=== PATIENT | male | born 1935 | race Caucasian/White ===

== ENCOUNTER → 2016-11-11 | Outpatient (CLI) | payer OTHER, MEDICARE | LOC: BHFA 14:45 | PROVIDERS: ATTEND Internal Medicine | DX: I35.9 Nonrheumatic aortic valve disorder, unspecified (principal) ==

== ENCOUNTER 2017-01-08 18:15 | Inpatient (IN) | payer OTHER, MEDICARE ==
--- NOTE | 2017-01-08 18:16 | EDPHY ---
H & P Time Seen by Provider: 01/08/17 18:16 HPI/ROS: CHIEF COMPLAINT: Altered mental status HISTORY OF PRESENT ILLNESS: Patient arrives by EMS. Apparently this 81-year- old man went for a 6 mi hike and when he got home with his was suddenly altered at 5:20 p.m.. He was answering questions with numbers only and this persisted for 30-40 minutes. On arrival now is mental status is better. He is noted to have a cough for the last 3 days but denies chest pain or shortness of breath. Denies fever or chills. Denies chest pain or weakness or numbness in extremities. REVIEW OF SYSTEMS: Eye: no change in vision ENT: no sore throat Cardiac: no chest pain or syncope Pulmonary: Not short of breath Abdomen: no vomiting, diarrhea, abdominal pain Musculoskeletal: no back pain Skin: no rash Neuro: no headache Constitutional: no fever : no urinary symptoms A comprehensive 10 point review of systems is otherwise negative aside from elements mentioned in the history of present illness. PAST MEDICAL HISTORY: Cardiac bypass surgery in August of 2016, hypertension Social history: , no alcohol or tobacco General Appearance: Alert and conversant, cooperative. Eyes: No scleral icterus. ENT, Mouth: Normal mucous membranes. Respiratory: Rhonchi greater right lower lobe than left, mildly tachypneic. Cardiovascular: Regular rate and rhythm. No murmur Gastrointestinal: Abdomen is soft and non tender. Neurological: Alert and oriented x3. Normally conversant. Face symmetric, normal movement and sensation in all extremities. Follows commands appropriately and answers questions with words not numbers. Skin: Warm and dry, no rashes. Musculoskeletal: No peripheral edema and no joint swelling. Neck full range of motion with no meningeal signs. Psychiatric: Not agitated. Emergency Department course/MDM: Possibility of stroke or TIAs considered but his symptoms have resolved at the time of emergency department arrival. He has had a cough for several days and is hypoxic on arrival, feels warm to the touch, suspicion for pneumonia with sepsis. 1916: Discussed results with patient and family, admission for hypoxemia and pneumonia with probable hypoxia related altered mental status. Does meet SIRS criteria for sepsis but does not have severe sepsis. Antibiotics for community-acquired pneumonia as he has not been hospitalized for greater than 90 days. Levaquin 750 mg IV chosen to avoid macrolides in the patient on amiodarone because of QT prolongation potential. Constitutional: Initial Vital Signs Temperature (C) 37.7 C 01/08/17 18:15 Heart Rate 96 01/08/17 18:15 Respiratory Rate 14 01/08/17 18:15 Blood Pressure 146/76 H 01/08/17 18:15 O2 Sat (%) 94 01/08/17 18:15 O2 Delivery Mode Nasal Cannula O2 (L/minute) 4 Allergies/Adverse Reactions: No Known Allergies Allergy (Verified 09/15/16 08:39) Home Medications: Medication Instructions Recorded Albuterol Hfa Anes Only [Proair 2 puffs IH Q4-6PRN PRN 11/16/12 Hfa Icu (*)] Cholecalciferol Vit D3 [Vitamin D3 4,000 units PO DAILY 11/16/12 (*)] Clopidogrel Bisulfate [Plavix (*)] 75 mg PO SUTUTHSA 11/16/12 Atorvastatin Calcium [Lipitor 40 40 mg PO DAILY 08/29/16 mg (*)] Fluticasone/Salmeter 250/50Mcg 1 puffs IH BID 08/29/16 [Advair 250/50 (*)] Pantoprazole Sodium [Protonix 40mg 40 mg PO DAILY 08/29/16 (*)] Sennosides/Docusate Sodium 1 - 2 tab PO BID PRN #0 tab 09/10/16 [Senokot-S] amLODIPine BESYLATE [Norvasc 5 mg 5 mg PO DAILY #0 tab 09/10/16 (*)] Medical Decision Making - Diagnostics EKG Interpretation: 12-lead EKG interpreted by me; official reading is in trace master. My interpretation is sinus rhythm inferior Q-waves noted, no acute ischemic changes , rate 93. Imaging: Chest x-ray personally interpreted by myself shows right upper lung pneumonia, reviewed with radiologist at 7:05 p.m. agrees Differential Diagnosis: Altered mental status differential considered including but not limited to stroke, TIA, BATH ATTENDANT infection, hypoxemia. Consult/Admit Bed Type: Michelle Shultz 1925 Critical Care Time: Critical care time spent by me, Dr. Benton, exclusively with the care of this patient was 30 minutes, exclusive of PA or EDUCATIONAL TECHNOLOGY SPECIALIST time and exclusive of separate procedures. The organ system at risk was pulmonary with initial oxygen saturations in the mid 80s on room air, and I ordered supplemental oxygen, IV fluid resuscitation, IV antibiotics, multiple diagnostic studies, discussion with admitting coutierier; to stabilize the patient and prevent worsening of the patient's condition. - Data Points Laboratory Results: Laboratory Results 01/08/17 18:27 01/08/17 18:27 01/08/17 01/08/17 01/08/17 18:28 18:27 18:27 WBC RBC Hgb Hct MCV MCH MCHC RDW Plt Count MPV Neut % (Auto) Lymph % (Auto) [place] % (Auto) Eos % (Auto) Baso % (Auto) Nucleat RBC Rel Count Absolute Neuts (auto) Absolute Lymphs (auto) Absolute Monos (auto) Absolute Eos (auto) Absolute Basos (auto) Absolute Nucleated RBC Immature Gran % Immature Gran # PT 13.7 SEC SEC (12.0-15.0) INR 1.06 (0.83-1.16) APTT 27.6 SEC SEC (23.0-38.0) VBG Lactic Acid 1.3 mmol/L mmol/L (0.7-2.1) Sodium 139 mEq/L mEq/L (134-144) Potassium 4.2 mEq/L mEq/L (3.5-5.2) Chloride 103 mEq/L mEq/L (97-110) Carbon Dioxide 23 mEq/l mEq/l (22-31) Anion Gap 13 mEq/L mEq/L (8-16) BUN 20 mg/dL mg/dL (7-23) Creatinine 1.1 mg/dL mg/dL (0.7-1.3) Estimated GFR > 60 Glucose 112 mg/dL H mg/dL (70-100) Calcium 9.8 mg/dL mg/dL (8.5-10.4) Total Bilirubin 1.1 mg/dL mg/dL (0.1-1.4) 01/08/17 18:27 WBC 13.20 10^3/uL H 10^3/uL (3.80-9.50) RBC 4.02 10^6/uL L 10^6/uL (4.40-6.38) Hgb 11.2 g/dL L g/dL (13.7-17.5) Hct 34.3 % L % (40.0-51.0) MCV 85.3 fL fL (81.5-99.8) MCH 27.9 pg pg (27.9-34.1) MCHC 32.7 g/dL g/dL (32.4-36.7) RDW 14.7 % % (11.5-15.2) Plt Count 235 10^3/uL 10^3/uL (150-400) MPV 9.5 fL fL (8.7-11.7) Neut % (Auto) 86.2 % H % (39.3-74.2) Lymph % (Auto) 5.4 % L % (15.0-45.0) [place] % (Auto) 7.5 % % (4.5-13.0) Eos % (Auto) 0.2 % L % (0.6-7.6) Baso % (Auto) 0.2 % L % (0.3-1.7) Nucleat RBC Rel Count 0.0 % % (0.0-0.2) Absolute Neuts (auto) 11.39 10^3/uL H 10^3/uL (1.70-6.50) Absolute Lymphs (auto) 0.71 10^3/uL L 10^3/uL (1.00-3.00) Absolute Monos (auto) 0.99 10^3/uL H 10^3/uL (0.30-0.80) Absolute Eos (auto) 0.02 10^3/uL L 10^3/uL (0.03-0.40) Absolute Basos (auto) 0.02 10^3/uL 10^3/uL (0.02-0.10) Absolute Nucleated RBC 0.00 10^3/uL 10^3/uL (0-0.01) Immature Gran % 0.5 % % (0.0-1.1) Immature Gran # 0.07 10^3/uL 10^3/uL (0.00-0.10) PT INR APTT VBG Lactic Acid Sodium Potassium Chloride Carbon Dioxide Anion Gap BUN Creatinine Estimated GFR Glucose Calcium Total Bilirubin Medications Given: Discontinued Medications Ceftriaxone Sodium/Dextrose (Rocephin 1 Gm (Premix)) 50 mls @ 100 mls/hr IV EDNOW ONE PRN Reason: Protocol Stop: 01/08/17 19:49 Last Admin: 01/08/17 20:21 Dose: Not Given Sodium Chloride (Ns) 1,000 mls @ 0 mls/hr IV ONCE ONE PRN Reason: Wide Open Stop: 01/08/17 19:21 Last Admin: 01/08/17 20:02 Dose: 1,000 mls Levofloxacin/Dextrose (Levaquin 750 Mg (Premix)) 150 mls @ 100 mls/hr IV EDNOW ONE PRN Reason: Protocol Stop: 01/08/17 20:49 Last Admin: 01/08/17 20:02 Dose: 150 mls Departure - Departure Disposition: [facility] Inpatient Acute Clinical Impression: Pneumonia Qualifiers: Pneumonia type: due to unspecified organism Laterality: right Lung location: upper lobe of lung Qualified Code(s): J18.1 - Lobar pneumonia, unspecified organism Condition: Good
--- NOTE | 2017-01-08 18:29 | CPEKG ---
Heart Rate: 93 RR Interval: 645 P-R Interval: 164 QRSD Interval: 94 QT Interval: 356 QTC Interval: 443 P [place]: 71 QRS [place]: 66 T Wave [place]: -87 EKG Severity - BORDERLINE ECG - EKG Impression: SINUS RHYTHM EKG Impression: BORDERLINE INFERIOR Q WAVES Electronically Signed By: Galen Benton 08-Jan-2017 18:54:39
[2017-01-08 18:30] LABS: % IMMATURE GRANULYOCYTES 0.5 % (0.0-1.1); ABSOLUTE IMMATURE GRANULOCYTES 0.07 10^3/uL (0.00-0.10); ADD DIFF? NO; ADD MORPH? NO; ADD SCAN? NO; ATYPICAL LYMPHOCYTE FLAG 20 (0-99); FRAGMENT RBC FLAG 0 (0-99); HEMATOCRIT 34.3 % (40.0-51.0); HEMOGLOBIN 11.2 g/dL (13.7-17.5); LEFT SHIFT FLG 0 (0-99); LIPEMIA HEMOLYSIS FLAG 80 (0-99); MEAN CELL HEMOGLOBIN 27.9 pg (27.9-34.1); MEAN CELL HEMOGLOBIN CONCENTR. 32.7 g/dL (32.4-36.7); MEAN CELL VOLUME 85.3 fL (81.5-99.8); MEAN PLATELET VOLUME 9.5 fL (8.7-11.7); PLATELET CLUMPS FLAG 0 (0-99); PLATELET COUNT 235 10^3/uL (150-400); RED BLOOD CELL COUNT 4.02 10^6/uL (4.40-6.38); RED CELL DISTRIBUTION WIDTH 14.7 % (11.5-15.2)
[2017-01-08 18:40] LABS: ANION GAP 13 mEq/L (8-16); BILIRUBIN,TOTAL 1.1 mg/dL (0.1-1.4); CALCIUM 9.8 mg/dL (8.5-10.4); CARBON DIOXIDE 23 mEq/l (22-31); CHLORIDE 103 mEq/L (97-110); CREATININE 1.1 mg/dL (0.7-1.3); GLOMERULAR FILTRATION RATE > 60; GLUCOSE 112 mg/dL (70-100); POTASSIUM 4.2 mEq/L (3.5-5.2); SODIUM 139 mEq/L (134-144)
[2017-01-08 18:44] LABS: INR 1.06 (0.83-1.16); PROTIME(PATIENT) 13.7 SEC (12.0-15.0)
[2017-01-08 18:45] LABS: APTT 27.6 SEC (23.0-38.0)
[2017-01-08] MEDS ORDERED: NS 1,000 ML IV ONE (19:20)
[2017-01-08] MEDS ORDERED: POLYETHYLENE GLYCOL 3350 17 GM PKT PO PRN (20:35)
[2017-01-08] MEDS ORDERED: ONDANSETRON 4 MG/2 ML VIAL IVP PRN (20:35)
[2017-01-08] MEDS ORDERED: ACETAMINOPHEN 325 MG TAB PO PRN (20:35)
[2017-01-08] MEDS ORDERED: MAGNESIUM HYDROXIDE 30 ML UDCUP PO PRN (20:35)
[2017-01-08] MEDS ORDERED: LACTULOSE 20 GM/30 ML UDCUP PO PRN (20:35)
[2017-01-08] MEDS ORDERED: BISACODYL 10 MG SUPP PR PRN (20:35)
[2017-01-08] MEDS ORDERED: ONDANSETRON DISINTEGRATING 4 MG TAB PO PRN (20:35)
--- NOTE | 2017-01-08 21:26 | SOAPPROG ---
SOAP Progress Note Assessment/Plan: Assessment: Plan: 01/08/17 21:30 1. pneumonia: infiltrates don't look that profound on CXR, but given hypoxia, elevated WBC, I think appropriate for admission. Hypoxia doesn't appear to be related to underlying COPD as O2 sat in office on 07/05/17 was 96% on RA. Expect he will need at least 2 MN for hypoxia to resolve. Will continue levaquin. 2. RAD/COPD: no wheezing, and moving air fairly well, so will continue current regimen of Advair 250/50 and prn albuterol. Steroids may need to be increased, but he is comfortable for now. 3. hypertension: on amlodipine 4. s/p CABG, AVR: on plavix 5. anemia: last CBC on 11/15/16 with hgb 12.2, hct 38.6. Will follow. 6. VTE prophylaxis: on plavix. Will add support hose. Very mobile. 01/08/17 21:36 Subjective: 81 yo male with hx RAD/COPD, CAD s/p 3v CABG and AVR 08/28 had been feeling pretty well today. Went on 6 mile hike with his without problem, but later , when watching TV, started to feel a little nauseated and began to answer questions with numbers only, per ED report. He doesn't recall this, and his isn't here. She called 911. His O2 sat was in the mid 80s and he was brought to ED. On 4L O2, he was saturating in the 90s and his mental status changes resolved. CXR showed a R upper and lower lobe pneumonia. Head CT negative. EKG unremarkable. WBC elevated at 13.2 with left shift. He has noted some mild increased cough over the last few days, low grade temp to 98.8 yesterday, but hasn't really felt sick. No CP, SOB. Levaquin 750mg IV given in ED. Objective: Vital Signs Temp Pulse Resp BP Pulse Ox 37.7 C 104 H 16 148/74 H 91 L 01/08/17 18:15 01/08/17 20:23 01/08/17 20:23 01/08/17 20:23 01/08/17 20:23 01/07/17 01/08/17 01/09/17 05:59 05:59 05:59 Intake Total 1150 Balance 1150 PT 13.7 SEC (12.0-15.0) 01/08/17 18:27 INR 1.06 (0.83-1.16) 01/08/17 18:27 General: comfortable appearing, pleasant, converses easily without respiratory distress HEENT: PERRL, EOMI. O/P without erythema Neck: no masses, adenopathy Lungs: somewhat diminished breath sounds throughout. Few rhonchi R base. No wheezing, rales Cardiovascular: regular rhythm, mildly tachycardic, no murmur Abdomen: +bowel sounds, soft, NT. No hepatosplenomegaly, masses. Extremities: no clubbing, cyanosis, edema Neurologic: moving all extremities Psychiatric: alert, oriented ICD10 Worksheet Patient Problems: Problems Problem Status Onset Pneumonia Acute Acute blood loss anemia Acute Postoperative atrial fibrillation Acute S/P CABG x 3 Acute 09/03/16 S/P aortic valve replacement with bioprosthetic valve Acute 09/03/16 Aortic insufficiency Chronic CAD (coronary artery disease) Chronic
[2017-01-08] MEDS ORDERED: ALBUTEROL 60 PUFFS/8 GM MDI IH PRN (21:30)
[2017-01-08] MEDS: SENNOSIDES/DOCUSATE SODIUM TAB PO SCH (22:08)
[2017-01-08] MEDS: FLUTICASONE/SALMETER 250/50MCG DISKUS IH SCH (22:47)
--- NOTE | 2017-01-08 23:23 | GHP ---
[f rep st] HISTORY AND PHYSICAL DATE OF ADMISSION: 01/08/2017 HISTORY OF PRESENT ILLNESS: The patient is an 81-year-old male with a history of RAD/COPD, coronary artery disease, status post 3 vessel bypass surgery, and aortic valve replacement in August 2016 who was feeling well today. He returned from a 6 mile hike with his and was watching TV when he began to feel a little nauseated and started answering questions with numbers only, per emergency department report. He himself does not recall this. His called 911. He was noted to be hypoxic saturating in the mid 80s and was brought to the emergency department. On 4 L of O2 his saturations improved into the 90s, and all of his mental status changes resolved. A chest x-ray showed a right upper and right lower lobe pneumonia. His white blood cell count was elevated at 13.2 with a left shift. He was afebrile. EKG was unremarkable and head CT was negative. He does report some increased cough over the last few days and did note a very low-grade temperature to 98.8 yesterday but generally has been feeling pretty well without chest pain or shortness of breath. He was seen by Dr. Hayes in the office on 01/02/2017 for reevaluation of shortness of breath. Back in October he had been experiencing shortness of breath and wheezing with exertion and was diagnosed with COPD by his bread room hand. He was subsequently placed on high-dose Advair 500/50 mcg twice daily and over the course of several weeks improved significantly such that the Advair dose was able to be decreased to 250/50 mcg twice daily when he was seen on January 02. PAST MEDICAL HISTORY: 1. GI bleed. 2. Peptic ulcer. 3. Testicular dysfunction. 4. Obstructive sleep apnea. 5. Primary pulmonary hypertension. 6. Varicose veins. 7. Psoriasis. 8. Pulmonary embolism. 9. Eczema. 10. Reactive airways disease/chronic obstructive pulmonary disease. 11. Vitamin D deficiency. 12. Iron deficiency anemia. 13. Thyroid nodule. 14. Aortic valve stenosis. 15. Coronary artery disease. 16. Hypertension. MEDICATIONS: Amlodipine 5 mg daily. Advair Diskus 250/50 mcg 1 puff twice daily. AndroGel 40.5 mg per 2.5 g 2 pumps daily. Protonix 40 mg daily. Atorvastatin 40 mg daily. Albuterol inhaler as needed. Vitamin D daily. Plavix 75 mg 4 times weekly. ALLERGIES: No known drug allergies. PAST SURGICAL HISTORY: Vein ablation, three-vessel bypass with aortic valve replacement 08/2016. FAMILY HISTORY: Father from throat cancer. Mother . SOCIAL HISTORY: The patient is and lives with his . He is a former smoker having quit more than 10 years ago. REVIEW OF SYSTEMS: CONSTITUTIONAL: He reports a low-grade temperature. HEENT : No head congestion or sore throat. RESPIRATORY: Mild cough, no shortness of breath. CARDIOVASCULAR: No chest pain or pressure. Mild tachycardia. GASTROINTESTINAL: Nausea today with small amount of emesis. No abdominal pain , diarrhea, or constipation. GENITOURINARY: No dysuria or hematuria. MUSCULOSKELETAL: No joint pain or swelling. SKIN: No rashes. NEUROLOGIC: No headache, numbness or tingling. Previous mental status change as noted above. PHYSICAL EXAMINATION: VITAL SIGNS: Temp 37.7, pulse 104, respiratory rate 16, blood pressure 148/74, oxygen saturation 91% on 4 L. GENERAL: He is comfortable-appearing, pleasant, converses easily without respiratory distress. HEENT: Pupils equal, round, and reactive to light. Extraocular movements are intact. Oropharynx without erythema. NECK: Supple without masses or adenopathy. LUNGS: Somewhat diminished breath sounds throughout, a few rhonchi in right base, no wheezing or rales. CARDIOVASCULAR: Regular rhythm. Mild tachycardia. No murmur noted. ABDOMEN: Normoactive bowel sounds. Soft and nontender. No hepatosplenomegaly or masses. EXTREMITIES: No clubbing, cyanosis, or edema. NEUROLOGIC: Moving all extremities. PSYCHIATRIC: Alert and oriented. ASSESSMENT AND PLAN: 1. Pneumonia: Infiltrates do not look that profound on his chest x-ray, but, given the hypoxia and elevated white blood cell count, I think he is appropriate for admission. Hypoxia does not appear to be related to his underlying chronic obstructive pulmonary disease as his O2 saturation in the office on 07/05/2017 was 96% on room air. I expect he will need at least 2 midnights for his hypoxia to resolve. He has received a dose of levaquin in the ED, so will continue Levaquin. 2. Reactive airways disease/chronic obstructive pulmonary disease. He is currently not wheezing and moving air fairly well, so we will continue current regimen of Advair 250/50 mcg twice daily and as needed albuterol. Steroids may need to be increased but currently he is comfortable. 3. Hypertension on amlodipine. 4. Status post coronary artery bypass grafting and aortic valve replacement on Plavix. 5. Anemia. Last CBC on 11/15/2016 showed a hemoglobin of 12.2 and hematocrit of 38.6. We will follow this. 6. VTE prophylaxis. He is currently on Plavix. We will add support hose. He is currently very mobile. 7. Gastroesophageal reflux disease. We will continue Protonix. /[id number]/MODL MTDD
[2017-01-09 04:48] LABS: % IMMATURE GRANULYOCYTES 0.8 % (0.0-1.1); ADD DIFF? NO; ADD MORPH? NO; ADD SCAN? NO; ATYPICAL LYMPHOCYTE FLAG 0 (0-99); FRAGMENT RBC FLAG 0 (0-99); HEMATOCRIT 29.8 % (40.0-51.0); HEMOGLOBIN 9.8 g/dL (13.7-17.5); LEFT SHIFT FLG 20 (0-99); LIPEMIA HEMOLYSIS FLAG 80 (0-99); MEAN CELL HEMOGLOBIN 28.2 pg (27.9-34.1); MEAN CELL HEMOGLOBIN CONCENTR. 32.9 g/dL (32.4-36.7); MEAN CELL VOLUME 85.6 fL (81.5-99.8); MEAN PLATELET VOLUME 9.3 fL (8.7-11.7); PLATELET CLUMPS FLAG 10 (0-99); PLATELET COUNT 195 10^3/uL (150-400); RED BLOOD CELL COUNT 3.48 10^6/uL (4.40-6.38); RED CELL DISTRIBUTION WIDTH 14.8 % (11.5-15.2)
[2017-01-09 05:00] LABS: ANION GAP 9 mEq/L (8-16); CALCIUM 9.1 mg/dL (8.5-10.4); CARBON DIOXIDE 25 mEq/l (22-31); CHLORIDE 105 mEq/L (97-110); GLOMERULAR FILTRATION RATE > 60; GLUCOSE 95 mg/dL (70-100); POTASSIUM 3.9 mEq/L (3.5-5.2); SODIUM 139 mEq/L (134-144)
[2017-01-09 06:03] LABS: COLOR YELLOW; LEUKOCYTE ESTERASE,URINE NEGATIVE (NEGATIVE); NITRITE,URINE NEGATIVE (NEGATIVE)
[2017-01-09 06:05] LABS: MUCUS TRACE /lpf (NONE-1+)
[2017-01-09] MEDS: FLUTICASONE/SALMETER 250/50MCG DISKUS IH SCH ×2 (08:28→20:11)
[2017-01-09] MEDS ORDERED: CHOLECALCIFEROL VIT D3 2,000 UNITS TAB/CAP PO SCH (09:00)
[2017-01-09] MEDS ORDERED: ATORVASTATIN CALCIUM 40 MG TAB PO SCH (09:00)
[2017-01-09] MEDS ORDERED: amLODIPine BESYLATE 5 MG TAB PO SCH (09:00)
[2017-01-09] MEDS ORDERED: PANTOPRAZOLE SODIUM 40 MG TAB PO SCH (09:00)
[2017-01-09] MEDS ORDERED: IOPAMIDOL (ISOVUE 370) 100 ML BTL IV ONE (09:06)
--- NOTE | 2017-01-09 09:35 | SOAPPROG ---
SOAP Progress Note Assessment/Plan: Assessment: 81 yo male w/ hypoxia, known rad/copd, s/p fairly recent AVR for severe aortic stenosis and cabg (08/2016), h/o pe, who was hiking on day of admission and had noted a cough for a few days prior, who by dinner had altered MS, BIBA to ER, found hypoxic in 80's w/ cxr concerning for RUL/RLL pna w/ cbc w/ elev wbc and L shift - was started on levaquin in ER. -hypoxia - likely PNA although given hypercoag state, initial tachycardia, sudden change in function will check chest CT now to r/o PE. If neg, cont on levaquin, oxygen, pt really desiring to go home will consider if continues to rapidly improve but will need home oxygen. Doubtful today as he desires given his presentation and rapid decline yesterday. -s/p AVR and CABG - on plavix/asa - not on plavix daily due to h/o GIB - is on this 4d/week, is f/b Dr Lopez, will dw him if sob persists, ct neg. -anemia - stable from AVR/CABG in Aug. Follow given h/o GIB. -copd/rad - cont on advair 250/50, albuterol prn, is currently w/o wheezes, will review results of chest CT once avail. -dvt proph - currently on asa/plavix and ambulating (hiked 6 miles yesterday), will adjust if CT pos. -dispo - pt hopeful in next 24 hours - will reassess vitals and labs and results and if d/c soon will need home oxgyen. Plan: 01/09/17 09:26 01/09/17 09:35 Subjective: Feeling well overall, denies sob, has a cough, no fevers/chills but did feel a little off yesterday, hiking slower than usual Objective: Vital Signs Temp Pulse Resp BP Pulse Ox 36.8 C 82 16 134/75 H 94 01/09/17 07:20 01/09/17 07:20 01/09/17 07:20 01/09/17 07:20 01/09/17 07:20 Laboratory Results 01/09/17 04:18 01/09/17 04:18 01/08/17 01/09/1701/10/17 05:59 05:59 05:59 Intake Total 1150 Balance 1150 PT 13.7 SEC (12.0-15.0) 01/08/17 18:27 INR 1.06 (0.83-1.16) 01/08/17 18:27 Gen: A&O x 3, pleasant HEENT: wearing nasal cannula, glasses Chest: rhonchi scattered R, few crackles CV: rrr ABD: soft nt nd Ext: no edema Neure: A&O, appropriate, cognition intact ICD10 Worksheet Patient Problems: Problems Problem Status Onset Chronic Disease [facility]itional Care Acute CAD (coronary artery disease) Chronic Aortic insufficiency Chronic S/P CABG x 3 Acute 09/03/16 Acute blood loss anemia Acute S/P aortic valve replacement with bioprosthetic valve Acute 09/03/16 Postoperative atrial fibrillation Acute Pneumonia Acute
[2017-01-09] MEDS: SENNOSIDES/DOCUSATE SODIUM TAB PO SCH ×2 (09:44→20:09)
[2017-01-09] MEDS ORDERED: AZITHROMYCIN IV 500 MG in D5W 250 ML IV ONE (17:20)
[2017-01-09] MEDS ORDERED: CLOPIDOGREL BISULFATE 75 MG TAB PO SCH ×2 (20:45)
[2017-01-09 22:08] VITALS: PULSE 86
[2017-01-10 07:35] VITALS: RESP 20; TEMP 98.2; O2SAT 94
[2017-01-10] MEDS: FLUTICASONE/SALMETER 250/50MCG DISKUS IH SCH (08:12)
[2017-01-10 08:27] VITALS: BP 114/63
--- NOTE | 2017-01-10 08:28 | SOAPPROG ---
SOAP Progress Note Assessment/Plan: Assessment:Pneumonia improving. Plan:Home on PO antibiotics. 01/10/17 08:27 Subjective: doing well. cough productive of brown sputume not short of breath. Objective: Vital Signs Temp Pulse Resp BP Pulse Ox 36.8 C 86 20 122/74 H 94 01/10/17 07:33 01/10/17 07:33 01/10/17 07:33 01/10/17 07:33 01/10/17 07:33 Laboratory Results 01/09/17 04:18 01/09/17 04:18 01/09/17 01/10/17 01/11/17 05:59 05:59 05:59 Intake Total 1150 1100 Output Total 300 Balance 1150 800 PT 13.7 SEC (12.0-15.0) 01/08/17 18:27 INR 1.06 (0.83-1.16) 01/08/17 18:27 oxygen saturation 91-93% on RA. Lungs with minimal basalar rales. ICD10 Worksheet Patient Problems: Problems Problem Status Onset Chronic Disease [facility]/Transitional Care Acute Pneumonia Acute Acute blood loss anemia Acute Postoperative atrial fibrillation Acute S/P CABG x 3 Acute 09/03/16 S/P aortic valve replacement with bioprosthetic valve Acute 09/03/16 Aortic insufficiency Chronic CAD (coronary artery disease) Chronic
[2017-01-10] MEDS ORDERED: amLODIPine BESYLATE 5 MG TAB PO SCH (09:00)
[2017-01-10] MEDS ORDERED: PANTOPRAZOLE SODIUM 40 MG TAB PO SCH (09:00)
[2017-01-10] MEDS ORDERED: CHOLECALCIFEROL VIT D3 2,000 UNITS TAB/CAP PO SCH (09:00)
[2017-01-10] MEDS: SENNOSIDES/DOCUSATE SODIUM TAB PO SCH (09:00)
[2017-01-10] MEDS ORDERED: ATORVASTATIN CALCIUM 40 MG TAB PO SCH (09:00)
--- NOTE | 2017-01-10 09:16 | GDS ---
[f rep st] DISCHARGE SUMMARY ADMISSION DIAGNOSIS: Pneumonia. DISCHARGE DIAGNOSIS: Pneumonia. PROCEDURES: 1. IV antibiotics. 2. Electrocardiogram. 3. CT pulmonary angiogram. 4. Chest x-ray. 5. Head CT without contrast. HOSPITAL COURSE: The patient was admitted to the emergency room with weakness. His initially thought he might be having a stroke. Chest x-ray revealed a very faint infiltrate; however, CT pulm onary angiogram revealed significant right upper and right lower lobe pneumonia with superimposed CO PD. He had no blood clots. CT of the head was unremarkable. He was placed on antibiotics, initial ly azithromycin and ceftriaxone. He got strong quickly. He had no fever. Oxygen saturation improv ed. At the time of discharge, he was saturating 91% to 93% on room air. He does have underlying CO PD; however, he did not have any significant exacerbation of wheezing during the course of the hospi talization. He is being discharged to home, although he has been advised not to go to altitude unti l after he has been seen in followup which will occur sometime next week. DISCHARGE MEDICATIONS: Azithromycin 500 mg daily for 2 days. Ceftin 500 mg b.i.d. for 7 days. Adv air 250/50 one puff twice daily. Albuterol 1 puff every 4-6 hours as needed. Clopidogrel 75 mg gasper ly. Cholecalciferol, D3, 4000 units p.o. daily. Atorvastatin 40 mg daily. Pantoprazole 40 mg maynor y. Amlodipine 5 mg daily. FOLLOWUP: He will follow up with Dr. Hayes next week. /[id number]/MODL
[2017-01-10] MEDS ORDERED: AZITHROMYCIN 250 MG TAB PO SCH (12:00)
== END 2017-01-10 10:51 | disposition home or self-care (01) | DRG 195 ==
LOC: EDUNIT# → F3N 21:40
PROVIDERS: ADMIT Internal Medicine; ATTEND Internal Medicine
DX: J18.9 Pneumonia, unspecified organism (principal); J44.9 Chronic obstructive pulmonary disease, unspecified; I25.10 Atherosclerotic heart disease of native coronary artery without angina pectoris; I10 Essential (primary) hypertension; K21.9 Gastro-esophageal reflux disease without esophagitis; G47.33 Obstructive sleep apnea (adult) (pediatric); Z95.1 Presence of aortocoronary bypass graft; Z95.3 Presence of xenogenic heart valve; Z86.711 Personal history of pulmonary embolism
CPT/HCPCS: 96365; J0456; J0696; J1956; Q9967

== ENCOUNTER → 2017-04-23 | Outpatient (CLI) | payer OTHER, MEDICARE | LOC: FIMAGING 08:39 | PROVIDERS: ATTEND Internal Medicine Critical Care Medicine | DX: R06.00 Dyspnea, unspecified (principal); J44.9 Chronic obstructive pulmonary disease, unspecified; M81.0 Age-related osteoporosis without current pathological fracture; Z95.0 Presence of cardiac pacemaker; Z95.1 Presence of aortocoronary bypass graft; Z95.2 Presence of prosthetic heart valve ==

== ENCOUNTER 2017-05-08 19:20 | Emergency (ER) | payer OTHER, MEDICARE ==
[2017-05-08 19:27] VITALS: TEMP 97.2; O2SAT 94
--- NOTE | 2017-05-08 20:04 | EDPHY ---
H & P Stated Complaint: Fall, lightheaded, after drinking today, Hx Open heart. Time Seen by Provider: 05/08/17 20:03 - Personal History Current Tetanus/Diphtheria Vaccine: Unsure Current Tetanus Diphtheria and Acellular Pertussis (TDAP): Unsure - Medical/Surgical History Hx Asthma: Yes Hx Chronic Respiratory Disease: No Hx Diabetes: No Hx Cardiac Disease: Yes Hx Renal Disease: No Hx Cirrhosis: No Hx Alcoholism: No Hx HIV/AIDS: No Hx Splenectomy or Spleen Trauma: No Other PMH: Chronic back pain, hypertension, b/l varicosities and veins stripped , [place] in 2003 and stents also placed in 2005, hypertension. - Social History Smoking Status: Former smoker Constitutional: Initial Vital Signs Temperature (C) 36.2 C 05/08/17 19:24 Heart Rate 82 05/08/17 19:24 Respiratory Rate 16 05/08/17 19:24 Blood Pressure 100/59 L 05/08/17 19:24 O2 Sat (%) 94 05/08/17 19:24 O2 Delivery Mode Room Air Allergies/Adverse Reactions: No Known Allergies Allergy (Verified 05/08/17 19:27) Home Medications: Medication Instructions Recorded Albuterol Hfa Anes Only [Proair 2 puffs IH Q4-6PRN PRN 11/16/12 Hfa Icu (*)] Cholecalciferol Vit D3 [Vitamin D3 4,000 units PO DAILY 11/16/12 (*)] Clopidogrel Bisulfate [Plavix (*)] 75 mg PO SUTUTHSA 11/16/12 Atorvastatin Calcium [Lipitor 40 40 mg PO DAILY 08/29/16 mg (*)] Fluticasone/Salmeter 250/50Mcg 1 puffs IH BID 08/29/16 [Advair 250/50 (*)] Pantoprazole Sodium [Protonix 40mg 40 mg PO DAILY 08/29/16 (*)] amLODIPine BESYLATE [Norvasc 5 mg 5 mg PO DAILY #0 tab 09/10/16 (*)] Acetaminophen [Tylenol 325mg (*)] 650 mg PO Q4HRS PRN #0 tab 01/10/17 Fluticasone/Salmeter 250/50Mcg 1 puffs IH BID #0 disk 01/10/17 [Advair 250/50 (*)] Medical Decision Making ED Course/Re-evaluation: CHIEF COMPLAINT: Fall, lightheadedness HISTORY OF PRESENT ILLNESS: The patient is an 82 y/o male arriving with his for evaluation of a fall while drinking wine tonight. He has an extensive medical history that includes PE, COPD, CAD, GI bleed, and hypertension. He says , "I perhaps had a little too much wine." He bent over to grab his silverware and as he sat up he began to feel lightheaded, then slid to the ground. He denies any trauma from the fall. He did not lose consciousness. No chest pain, dyspnea, weakness, paresthesias, fever, or other complaints. He hikes regularly and denies symptoms during exercise. REVIEW OF SYSTEMS: A 10 point review of systems was performed and is negative with the exception of the elements mentioned in the history of present illness. PHYSICAL EXAM: HR, BP 135/86, O2 Sat, RR. Temp noted General Appearance: Alert, well hydrated, appropriate, and non-toxic appearing. Head: Atraumatic without scalp tenderness or obvious injury Eyes: Pupils equal, round, reactive to light and accommodation, EOMI, no trauma , no injection. Nose: Atraumatic, no rhinorrhea, clear. Throat: Mucus membranes moist. Neck: Supple, nontender, no lymphadenopathy. Respiratory: No retractions, no distress, no wheezes, and no accessory muscle use. Lungs are clear to auscultation bilaterally. Cardiovascular: Regular rate and rhythm, no murmurs, rubs, or gallops. Good capillary refill all extremities. Well-healed midline surgical incision. Gastrointestinal: Abdomen is soft, nontender, non-distended, no masses, no rebound, no guarding, no peritoneal signs. Musculoskeletal: Normal active ROM of all extremities, atraumatic. Neurological: Alert, appropriate, and interactive. Nonfocal neuro exam. Skin: No rashes, good turgor, no nodules on palpation. Past medical history: CAD, COPD, GI bleed, peptic ulcer, testicular dysfunction , obstructive sleep apnea, pulmonary hypertension, psoriasis, PE, eczema, COPD, anemia, aortic valve stenosis, CAD, hypertension. Past surgical history: CABG, vein ablation, aortic valve replacement, pacemaker Family history: noncontributory Social history: at bedside. Hikes regularly. 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 DIAGNOSTICS/PROCEDURES/CRITICAL CARE TIME: The 12 lead EKG was interpreted by myself. AV-Paced rhythm rate 77. See hard copy and/or "tracemaster" electronic copy for interpretation. DIFFERENTIAL DIAGNOSIS: The differential diagnosis for the patient's lightheadedness included but was not limited to transient hypotension, vertigo, orthostatic causes including dehydration, cardiogenic and neurogenic causes, and blood loss. MEDICAL DECISION MAKING: This is a well-appearing 82 y/o male who presents asymptomatic following a fall at home while drinking wine tonight. He has a significant cardiac history, but denies any chest pain, dyspnea, or other current symptoms. His lightheadedness has completely resolved. His exam is unremarkable. His EKG shows an AV-paced rhythm. We discussed treatment options and mutually decided to discontinue further work up here given complete resolution of his symptoms. I recommended follow up with Dr. Lopez regarding his desire to hike at altitude. Strict return precautions given. He is comfortable with plan for follow up. Departure - Departure Disposition: Home, Routine, Self-Care Clinical Impression: Lightheadedness Fall Qualifiers: Encounter type: initial encounter Qualified Code(s): W19.XXXA - Unspecified fall, initial encounter Condition: Good Instructions: Lightheadedness (ED), Fall Prevention for Older Adults (ED) Additional Instructions: Follow up with Dr. Lopez regarding your oxygen saturation while hiking. Return to the ED for chest pain, shortness of breath, fever, or other worsening of condition. Referrals: Yomaira Hayes MD [Primary Care Provider] - As per Instructions Darío Lopez MD [Medical Doctor] - As per Instructions
--- NOTE | 2017-05-08 20:11 | CPEKG ---
Heart Rate: 77 RR Interval: 779 P-R Interval: 196 QRSD Interval: 98 QT Interval: 408 QTC Interval: 462 P [place]: 69 QRS [place]: 63 T Wave [place]: -6 EKG Severity - ABNORMAL ECG - EKG Impression: ATRIAL-PACED COMPLEXES EKG Impression: LEFT ATRIAL ABNORMALITY EKG Impression: INFERIOR INFARCT, AGE INDETERMINATE Electronically Signed By: David Elmore 08-May-2017 23:29:16
[2017-05-08 21:09] VITALS: BP 108/67; PULSE 78; RESP 20
== END 2017-05-08 21:08 | disposition home or self-care (01) ==
DX: R42 Dizziness and giddiness (principal); J44.9 Chronic obstructive pulmonary disease, unspecified; I25.10 Atherosclerotic heart disease of native coronary artery without angina pectoris; I10 Essential (primary) hypertension; I25.2 Old myocardial infarction; Z87.891 Personal history of nicotine dependence

== ENCOUNTER → 2017-05-26 | Outpatient (CLI) | payer OTHER, MEDICARE | LOC: FIMAGING 10:09 | PROVIDERS: ATTEND Internal Medicine | DX: Z13.820 Encounter for screening for osteoporosis (principal); M85.80 Other specified disorders of bone density and structure, unspecified site ==

== ENCOUNTER → 2018-01-27 | Outpatient (CLI) | payer OTHER, MEDICARE | LOC: FIMAGING 07:44 | PROVIDERS: ATTEND Internal Medicine | DX: K21.0 Gastro-esophageal reflux disease with esophagitis (principal) ==

== ENCOUNTER → 2018-01-30 | Outpatient (CLI) | payer OTHER, MEDICARE | LOC: BHFA 10:45 | PROVIDERS: ATTEND Internal Medicine Interventional Cardiology | DX: Z95.2 Presence of prosthetic heart valve (principal) ==

== ENCOUNTER → 2018-04-14 | Outpatient (CLI) | payer OTHER, MEDICARE | LOC: BHFA 09:00 | PROVIDERS: ATTEND Internal Medicine Interventional Cardiology | DX: I20.8 Other forms of angina pectoris (principal) ==

== ENCOUNTER 2018-05-12 07:21 | Day surgery (SDC) | payer OTHER, MEDICARE ==
[2018-05-12] MEDS ORDERED: DIAZEPAM 5 MG TAB PO ONE (07:23)
[2018-05-12] MEDS ORDERED: diphenhydrAMINE 25 MG CAP PO ONE (07:23)
[2018-05-12] MEDS ORDERED: ASPIRIN EC 325 MG TAB PO ONE (07:23)
[2018-05-12] MEDS ORDERED: NS 1,000 ML IV ONE (07:23)
[2018-05-12] MEDS ORDERED: FAMOTIDINE 20 MG TAB PO ONE (07:23)
--- NOTE | 2018-05-12 07:49 | CPEKG ---
Heart Rate: 81 RR Interval: 741 P-R Interval: 200 QRSD Interval: 90 QT Interval: 388 QTC Interval: 451 QRS [place]: 45 T Wave [place]: 91 EKG Severity - ABNORMAL ECG - EKG Impression: ATRIAL-PACED RHYTHM EKG Impression: CONSIDER POSTERIOR INFARCT EKG Impression: MINIMAL ST DEPRESSION, ANTEROLATERAL LEADS EKG Impression: ST DEPRESSION NEW SINCE 08-MAY-2017 Electronically Signed By: Kamilah Bunch 12-May-2018 08:09:26
[2018-05-12 08:08] LABS: PLATELET COUNT 260 10^3/uL (150-400)
[2018-05-12 08:16] LABS: INR 1.1 (0.83-1.16); PROTIME(PATIENT) 14.4 SEC (12.0-15.0)
[2018-05-12] MEDS ORDERED: ASPIRIN EC 81 MG TAB PO ONE (08:17)
[2018-05-12] MEDS ORDERED: LIDOCAINE 1% 300 MG/30 ML SDV ONE (08:35)
[2018-05-12] MEDS ORDERED: MIDAZOLAM 2 MG/2 ML VIAL ONE (08:35)
[2018-05-12] MEDS ORDERED: fentaNYL 100 MCG/2 ML INJ ONE (08:35)
[2018-05-12] MEDS ORDERED: IOPAMIDOL (ISOVUE-370) 150 ML BTL IV ONE (08:35)
--- NOTE | 2018-05-12 10:00 | ECHO ---
[email or web address] [address] Main: [phone] Fax: Transthoracic Echocardiogram Name: RALF MCKEON MR#: [id number] Study Date: 05/12/2018 Study Time: 08:08 AM Date of : 1935 Age: 83 year(s) Height: 172.7 cm (68 in.) Weight: 64.86 kg (143 lb.) BSA: 1.77 m2 Gender: Male Examination: Echo Indication: Pre Cath, Hx of AVR/CABG Image Quality: Contrast: Requested by: Shady Samuel BP: 136 mmHg/61 mmHg Heart Rate: Rhythm: Normal sinus rhythm Indication: Pre Cath, Hx of AVR/CABG Procedure Staff Fuel Attendant: Apolinar Singh RDCS Reading Physician: Carole Arellano MD Requesting Provider: Conclusions: Normal size left ventricle. No regional wall motion abnormality. Mild septal hypertrophy. Normal size right ventricle. Normal RV function. There is a pacemaker lead noted in the right ventricle. The left atrium is mildly dilated. The aortic valve is a bioprosthesis. The AV Mean PG is 16 mmHg and the AV max PG is 27 mmhg.. Mild tricuspid regurgitation is present. The pulmonary artery pressure is normal. Compared with 01/30/2018 overall similar findings Measurements: Chambers Valvular Assessment AV/MV Valvular Assessment TV/PV Normal Normal Normal Name Value Range Name Value Range Name Value Range Ao Nayana (MM): 3.2 cm (2.2 cm-3.7 AV Vmax: 2.62 m/s (1 m/s-1.7 TR Vmax: 2.73 mm/s ( - ) cm) m/s) TR PGmax: 30 mmHg ( - ) IVSd (2D): 0.8 cm (0.6 cm-1.1 AV maxP mmHg ( - ) syst. PAP: 35 mmHg ( - ) cm) AV meanP mmHg ( - ) LVDd (2D): 4.4 cm (4.2 cm-5.9 LVOT Vmax: 1.09 m/s (0.7 m/s-1.1 cm) m/s) LVDs (2D): 2.7 cm (2.1 cm-4 AVIVA (Vmax): 1.2 cm2 ( - ) cm) AVIVA (VTI): 1.4 cm ( - ) LVPWd (2D): 1.1 cm (0.6 cm-1 MV E Vmax: 0.85 m/s ( - ) cm) MV A Vmax: 0.56 m/s ( - ) LVOTd 1.9 cm 1.9 cm mm MV E/A: 1.52 ( - ) LVEF (2D): 69 (>=54 %) Patient: RALF MCKEON Study Date: 05/12/2018 Page 1 of 2 08:08 AM Continued Measurements: Chambers Valvular Assessment TV/PV Name Value Name Value LADs Lon.9 cm CVP (est.): 5 mmHg LA Area: 21.3 cm2 LA Volume: 66 ml LA Volume Index: 37.3 ml/m2 Findings: Left Ventricle: Normal size left ventricle. Normal global systolic LV function. EF is 69 %. No regional wall motion abnormality. Diastolic dysfunction is present. . Mild septal hypertrophy. Right Ventricle: Normal size right ventricle. Normal RV function. There is a pacemaker lead noted in the right ventricle. Left Atrium: The left atrium is mildly dilated. Right Atrium: The right atrium is normal in size. Mitral Valve: The mitral valve is normal in appearance. Trivial mitral valve regurgitation. Aortic Valve: No aortic valve stenosis is present. The aortic valve is a bioprosthesis. Normal functioning aortic valve prosthesis. The prosthetic aortic valve is normal. The AV Mean PG is 16 mmHg and the AV max PG is 27 mmhg.. Tricuspid Valve: The tricuspid valve appears normal. Mild tricuspid regurgitation is present. The pulmonary artery pressure is normal. Pulmonic Valve: The pulmonic valve is normal in appearance and function. Aorta: The aorta is normal. Pericardium: No pericardial effusion. (No Signature Object) Patient: RALF MCKEON Study Date: 05/12/2018 Page 2 of 2 08:08 AM [id number]
--- NOTE | 2018-05-12 11:56 | PDCARPN ---
Cardiology Progress Note Chief Complaint: SOB Assessment/Plan: Assessment: SOB abnormal stress test Plan: 05/12/18 11:54 pt's Hgb was 5.9--most likely explanation for SOB d/w Dr. Goddard--will transfuse 1 unit PRBC now, then d/c home today to f/u with PCP/GI as outpatient Hold ASA/plavix until GI work-up complete f/u with [facility] in 1-2 weeks Subjective: JEFFRIES Reviewed/Discussed With: multidisciplinary team Time Spent with Patient: greater than 25 minutes Time Spent with Patient: Greater than 25 minutes spent on this patients care, greater than 50% of time spent counseling, educating, and coordinating care regarding the above mentioned plan. Objective: Intake/Output (24 Hrs) 05/11/18 05/12/18 05/13/18 05:59 05:59 05:59 Other: Weight 64.864 kg Result Diagrams: 05/12/18 10:00 05/12/18 07:45 - Physical Exam Constitutional: healthy appearing Ears, Nose, Mouth, Throat: moist mucous membranes Cardiovascular: regular rate and rhythm Peripheral Pulses: 1+: femoral (R), femoral (L) Respiratory: clear to auscultate bilat Gastrointestinal: normoactive bowel sounds Genitourinary: no suprapubic tenderness Skin: no rashes Musculoskeletal: no muscular tenderness Neurologic: AAOx3 Psychiatric: cooperative ICD10 Worksheet Patient Problems: Problems Problem Status Onset Acute blood loss anemia Acute Chronic Disease Mgmt/Transitional Care Acute Pneumonia Acute Postoperative atrial fibrillation Acute S/P CABG x 3 Acute 09/03/16 S/P aortic valve replacement with bioprosthetic valve Acute 09/03/16 Aortic insufficiency Chronic CAD (coronary artery disease) Chronic
== END 2018-05-12 14:15 | disposition home or self-care (01) ==
LOC: FCATH 07:21
PROVIDERS: ATTEND Internal Medicine Cardiovascular Disease
PROC: 30233N1 Transfusion of Nonautologous Red Blood Cells into Peripheral Vein, Percutaneous Approach (ICD-10-PCS; principal; 2018-05-12)
DX: R94.39 Abnormal result of other cardiovascular function study (principal); R06.02 Shortness of breath; D64.9 Anemia, unspecified
CPT/HCPCS: 93005; 93306; P9016; J1644; J2250; J3010; Q9967

== ENCOUNTER 2018-05-13 10:15 | Day surgery (SDC) | payer OTHER, MEDICARE ==
[2018-05-13] MEDS ORDERED: LR 1,000 ML IV ONE (10:42)
[2018-05-13] MEDS ORDERED: LIDOCAINE 1% 2 ML INJ ID PRN (10:42)
[2018-05-13 12:12] LABS: PLATELET COUNT 254 10^3/uL (150-400)
--- NOTE | 2018-05-13 12:14 | PDGENHP ---
History & Physical Chief Complaint: Anemia History of Present Illness: Patient with history of HTN, , CAD. Was found to be anemic. Pertinent Past, Social, Family History: HTN, CAD, COPD, Relevant Physical Exam: Constitutional: healthy appearing. Ears, Nose, Mouth, Throat: moist mucous membranes. Cardiovascular: regular rate and rhythm. Peripheral Pulses: 1+: femoral (R), femoral (L). Respiratory: clear to auscultate bilat. Gastrointestinal: normoactive bowel sounds. Genitourinary: no suprapubic tenderness. Skin: no rashes. Musculoskeletal: no muscular tenderness. Neurologic: AAOx3. Psychiatric: cooperative
--- NOTE | 2018-05-13 13:07 | PDANEPAE ---
ANE Past Medical History - Cardiovascular History Hx Hypertension: Yes Hx Arrhythmias: No Hx Chest Pain: No Hx Coronary Artery / Peripheral Vascular Disease: Yes Hx CHF / Valvular Disease: Yes Hx Palpitations: No Cardiovascular History Comment: [place] 2003 - Pulmonary History Hx COPD: Yes Hx Asthma/Reactive Airway Disease: No Hx Recent Upper Respiratory Infection: No Hx Oxygen in Use at Home: No Hx Sleep Apnea: No Sleep Apnea Screening Result - Last Documented: Positive - Neurologic History Hx Cerebrovascular Accident: No Hx Seizures: No Hx Dementia: No - Endocrine History Hx Diabetes: No - Renal History Hx Renal Disorders: No - Liver History Hx Hepatic Disorders: No - Neurological & Psychiatric Hx Hx Neurological and Psychiatric Disorders: No - Cancer History Hx Cancer: No - Congenital Disorder History Hx Congenital Disorders: No - GI History Hx Gastrointestinal Disorders: No Gastrointestinal History Comment: Anemic - Chronic Pain History Chronic Pain: Yes (back) - Surgical History Prior Surgeries: CABG and AVR Aug 2016. Pacemaker 2010 ANE Review of Systems Review of Systems: - Exercise capacity METS (RN): 4 METS - Pacemaker Pacemaker [employer]: [email or web address] Date Pacemaker Last Checked: 2 months ago ANE Patient History - Allergies Allergies/Adverse Reactions: No Known Allergies Allergy (Verified 05/08/17 19:27) - Home Medications Home Medications: Clopidogrel Bisulfate [Plavix (*)] 75 mg PO SUTUTHSA 11/16/12 [Last Taken 05:30] Atorvastatin Calcium [Lipitor 40 mg (*)] 40 mg PO HS 08/29/16 [Last Taken 20:00] Pantoprazole Sodium [Protonix 40mg (*)] 40 mg PO DAILY 08/29/16 [Last Taken 10/30 05:30] Acetamn/Diphenhydramine 500/25 [Tylenol PM (*)] 1 each PO HS PRN 05/05/18 [Last Taken 05/12/18 22:00] Albuterol [Proventil Inhaler HFA (*)] 1 - 2 puffs IH DAILY PRN 05/05/18 [Last Taken 05/10/18] Aspirin [Aspirin 81mg (*)] 81 mg PO DAILY 05/05/18 [Last Taken 05/12/18 05:30] Cholecalciferol Vit D3 [Vitamin D3 2000 units tab (OTC)] 2,000 units PO DAILY [Last Taken 05/12/18 05:30] Fluticasone/Salmeter 500/50Mcg [Advair 500/50 (*)] 1 puffs IH BID 05/05/18 [ Last Taken 05/13/18 05:30] Losartan Potassium [Cozaar 25 mg (*)] 25 mg PO HS 05/05/18 [Last Taken 05/12/18 20:00] Niacin [Niacin 500 mg (*)] 1,000 mg PO DAILY 05/05/18 [Last Taken 05/13/18 05:30 ] Lowry-3 Fatty Acids [Fish Oil 1000 mg (*)] 1,000 mg PO DAILY 05/05/18 [Last Taken 05/13/18 05:30] Testosterone [ANDROGEL 1% 5gm pkt (*)] 5 gm TD HS 05/05/18 [Last Taken 05/12/18 20:00] Tiotropium Inhaler [Spiriva Inhaler (RX)] 1 each IH HS 05/05/18 [Last Taken 20:00] amLODIPine BESYLATE [Norvasc 2.5 mg (*)] 2.5 mg PO DAILY 05/05/18 [Last Taken 05:30] - NPO status NPO Since - Liquids (Date): 05/13/18 NPO Since - Liquids (Time): 05:30 NPO Since - Solids (Date): 05/12/18 NPO Since - Solids (Time): 13:00 - Smoking Hx Smoking Status: Former smoker ANE Labs/Vital Signs - Labs Result Diagrams: 05/13/18 11:15 - Vital Signs Blood Pressure: 135/68 Heart Rate: 83 Respiratory Rate: 16 O2 Sat (%): 97 Height: 172.72 cm Weight: 64.864 kg ANE Physical Exam - Airway Mallampati Score: Class 2 - ASA Status ASA Status: III ANE Anesthesia Plan Total IV Anesthesia: Yes
[2018-05-13] MEDS ORDERED: PROPOFOL/EMULSION 500 MG/50 ML BOTTLE IV ONE (13:09)
--- NOTE | 2018-05-13 13:26 | GIREPORT ---
[facility] - Endoscopy Department Patient Name: Enrike Hurd Procedure Date: 05/13/2018 1:13 PM Patient Type: Outpatient Attending MD/ ER Physician: Gabe Gomez MD Procedure: Upper GI endoscopy Indications: Iron deficiency anemia secondary to chronic blood loss Providers: Gabe Gomez MD Medicines: Propofol per Anesthesia Complications: No immediate complications. Description of Procedure: After obtaining informed consent, the endoscope was passed under direct vision. Throughout the procedure, the patient's blood pressure, pulse, and oxygen saturations were monitored continuously. The Endoscope was intro duced through the mouth, and advanced to the second part of duodenum. The [facility] er GI endoscopy was accomplished without difficulty. The patient tolerated th e procedure well. Findings: LA Grade D (one or more mucosal breaks involving at least 75% of esopha geal circumference) esophagitis with no bleeding was found 30 to 34 cm from the incisors. Biopsies were taken with a cold forceps for histology. A large hiatal hernia was present. The entire examined stomach was normal. The examined duodenum was normal. Estimated Blood Loss: Estimated blood loss: none. Post Op Diagnosis: - LA Grade D reflux esophagitis. Biopsied. - Large hiatal hernia. - Normal stomach. - Normal examined duodenum. Recommendation: - Await pathology results. - Follow an antireflux regimen. - Use Protonix (pantoprazole) 40 mg PO daily. - Perform a colonoscopy today. - Thank you for allowing me to participate in the care of your patient. Attending Participation: I personally performed the entire procedure. Gabe Gomez MD Gabe Gomez MD 05/13/2018 1:26:07 PM This report has been signed electronicallyStpam Gomez MD Number of Addenda: 0 Note Initiated On: 05/13/2018 1:13 PM [email or web address]
--- NOTE | 2018-05-13 13:57 | GIREPORT ---
[facility] Surgical [facility] - Endoscopy Department Patient Name: Enrike Hurd Procedure Date: 05/13/2018 1:21 PM Patient Type: Outpatient Attending MD/ ER Physician: Gabe Gomez MD Procedure: Colonoscopy Indications: Iron deficiency anemia secondary to chronic blood loss Providers: Gabe Gomez MD Referring MD: Yomaira Hayes MD Medicines: Propofol per Anesthesia Complications: No immediate complications. Description of Procedure: After obtaining informed consent, the scope was passed under direct vis ion. Throughout the procedure, the patient's blood pressure, pulse, and oxyg en saturations were monitored continuously. The Colonoscope with irrigatio n channel was introduced through the anus and advanced to the cecum, identified by appendiceal orifice and ileocecal valve. The colonoscopy was somewhat difficult due to a redundant colon. The patient tolerated the procedure well. The quality of the bowel preparation was good. The ileo cecal valve, appendiceal orifice, and rectum were photographed. Findings: Many small and large-mouthed diverticula were found in the sigmoid colo n. A few small-mouthed diverticula were found in the ascending colon. Internal hemorrhoids were found during retroflexion. The hemorrhoids we re medium-sized. The exam was otherwise without abnormality on direct and retroflexion v iews. Estimated Blood Loss: Estimated blood loss: none. Post Op Diagnosis: - Diverticulosis in the sigmoid colon. - Diverticulosis in the ascending colon. - Internal hemorrhoids. - The examination was otherwise normal on direct and retroflexion views . - No specimens collected. Recommendation: - Patient has a contact number available for emergencies. The signs and symptoms of potential delayed complications were discussed with the pat ient. Return to normal activities tomorrow. Written discharge instructions we re provided to the patient. - High fiber diet. - Continue present medications. - No repeat colonoscopy due to age. - Thank you for allowing me to participate in the care of your patient. Attending Participation: I personally performed the entire procedure. Gabe Gomez MD Gabe Gomez MD 05/13/2018 1:57:11 PM This report has been signed electronicallyGabe Gomez MD Number of Addenda: 0 Note Initiated On: 05/13/2018 1:21 PM Total Procedure Duration Time 0 hours 24 minutes 43 seconds [email or web address]
[2018-05-13] MEDS ORDERED: LR 500 ML IV PRN (14:00)
[2018-05-13] MEDS ORDERED: ONDANSETRON 4 MG/2 ML VIAL IVP PRN (14:00)
[2018-05-13] MEDS ORDERED: fentaNYL 100 MCG/2 ML INJ IVP PRN (14:00)
[2018-05-13] MEDS ORDERED: NALOXONE HCL 0.4 MG/ML INJ IVP PRN (14:00)
--- NOTE | 2018-05-13 14:01 | POSTANESTH ---
Post Anesthetic Evaluation Cardiovascular Status: Similar to Pre-Op Cond Respiratory Status: Normal, Stable Level of Consciousness/Mental Status: Can Participate in Eval Pain Control: Adequate, Prn Tx Ordered Nausea/Vomiting Control: Adequate, Prn Tx Ordered Complications Possibly Related to Anesthesia: None Noted
[2018-05-13 14:46] VITALS: BP 131/60
== END 2018-05-13 15:15 | disposition home or self-care (01) ==
LOC: FSGY 10:15
PROVIDERS: ATTEND Internal Medicine Gastroenterology
DX: K22.10 Ulcer of esophagus without bleeding (principal); K57.30 Diverticulosis of large intestine without perforation or abscess without bleeding; D50.0 Iron deficiency anemia secondary to blood loss (chronic)
CPT/HCPCS: J2704

== ENCOUNTER 2018-05-18 15:02 | Outpatient (CLI) | payer OTHER, MEDICARE ==
[2018-05-18] MEDS ORDERED: ALTEPLASE 2 MG VIAL IVP PRN (15:21)
[2018-05-18] MEDS ORDERED: ACETAMINOPHEN 325 MG TAB PO ONE (15:30)
[2018-05-18] MEDS ORDERED: diphenhydrAMINE 25 MG CAP PO ONE (15:30)
== END 2018-05-18 18:56 | disposition home or self-care (01) ==
LOC: FOBOP 15:02
PROVIDERS: ATTEND Internal Medicine
PROC: 30233N1 Transfusion of Nonautologous Red Blood Cells into Peripheral Vein, Percutaneous Approach (ICD-10-PCS; principal; 2018-05-18)
DX: D50.0 Iron deficiency anemia secondary to blood loss (chronic) (principal)
CPT/HCPCS: 36430; P9016

== ENCOUNTER 2018-06-27 15:41 | Emergency (ER) | payer OTHER, MEDICARE ==
--- NOTE | 2018-06-27 15:53 | EDPHY ---
H & P Time Seen by Provider: 06/27/18 15:48 HPI/ROS: Chief complaint. Injected something into his penis HPI. Patient is 83-year-old male presents to the emergency department with swelling and redness to his penis. He has had problems getting an erection and has seen urology who wrote him a prescription for medication that was compounded at [facility] in [place]. He is at to get an erection. Yesterday afternoon at 1:30 a.m. He injected the normal dose at the left base of his penis. He says nothing happened so at 5:00 p.m. He injected double dose on the base of the right side of the penis. Now the shaft of his penis is swollen and red on the right side just proximal to the glans. He is not having trouble urinating. Testicles are normal. He also tripped and fell on his face this morning sustained abrasion to his nose and palms though continued to do the hike. He went home and cleaned up his abrasions. He does not have neck pain and did not lose consciousness ROS 10 systems were reviewed and negative with the exception of the elements mentioned in the history of present illness Past Medical/Surgical History: Past medical history is significant chronic back pain, hypertension, SD with stents Social History: , nonsmoker, no alcohol Smoking Status: Former smoker Physical Exam: General Appearance: Alert well-developed male mild distress vital signs are stable Eyes: Pupils equal and round no pallor or injection. ENT, abrasion to nose without deformity. No septal hematoma. No dental trauma. Respiratory: There are no retractions, lungs are clear to auscultation. Cardiovascular: Regular rate and rhythm. Gastrointestinal: Abdomen is soft and nontender, no masses, bowel sounds normal. Testicles are normal. Penis is not correct. At the base of the glans on the right side there is erythema and edema. He shows me the injection sites on either side of his penis at the base. These injection sites are unremarkable Neurological: Awake and alert, sensory and motor exams grossly normal. Skin: Abrasions to both palms and both knees Musculoskeletal: Neck is nontender Extremities symmetrical, full range of motion. Psychiatric: Patient is oriented X 3, there is no agitation. Constitutional: Initial Vital Signs Temperature (C) 36.6 C 06/27/18 15:44 Heart Rate 97 06/27/18 15:44 Respiratory Rate 18 09/15/18 15:44 Blood Pressure 126/69 H 06/27/18 15:44 O2 Sat (%) 93 06/27/18 15:44 O2 Delivery Mode Nasal Cannula Allergies/Adverse Reactions: No Known Allergies Allergy (Verified 06/27/18 15:42) Home Medications: Medication Instructions Recorded Atorvastatin Calcium [Lipitor 40 40 mg PO HS 08/29/16 mg (*)] Pantoprazole Sodium [Protonix 40mg 40 mg PO DAILY 08/29/16 (*)] Acetamn/Diphenhydramine 500/25 1 each PO HS PRN 05/05/18 [Tylenol PM (*)] Albuterol [Proventil Inhaler HFA 1 - 2 puffs IH DAILY PRN 05/05/18 (*)] Cholecalciferol Vit D3 [Vitamin D3 2,000 units PO DAILY 05/05/18 2000 units tab (OTC)] Fluticasone/Salmeter 500/50Mcg 1 puffs IH BID 05/05/18 [Advair 500/50 (*)] Losartan Potassium [Cozaar 25 mg 25 mg PO HS 05/05/18 (*)] Niacin [Niacin 500 mg (*)] 1,000 mg PO DAILY 05/05/18 [place]-3 Fatty Acids [Fish Oil 1000 1,000 mg PO DAILY 05/05/18 mg (*)] Testosterone [ANDROGEL 1% 5gm pkt 5 gm TD HS 05/05/18 (*)] Tiotropium Inhaler [Spiriva 1 each IH HS 05/05/18 Inhaler (RX)] amLODIPine BESYLATE [Norvasc 2.5 2.5 mg PO DAILY 05/05/18 mg (*)] Medical Decision Making ED Course/Re-evaluation: I called [facility] in [place] to try to determine the compound. However the pharmacies only open Friday through Friday. They are not open now. I tried to consulted discussed case with Urology but did not receive a return phone call I consulted discussed this case with Dr. Joy patient's regular physician. He agrees with treatment plan of observation and return for worsening symptoms. I discussed this plan with the patient. He expresses understanding and agreement. He knows that he may call Dr. Joy at any time over the weekend for worsening symptoms. He will be seen in the office on Friday. Differential Diagnosis: Patient does not have priapism. Testicles are normal. He is urinating normally. He has some redness and swelling at the base of the glans penis. This is likely early for cellulitis as injections were just yesterday. I suspect that this is somewhat secondary to the medication. Departure - Departure Disposition: Home, Routine, Self-Care Clinical Impression: Swelling, penis Condition: Good Instructions: Hematoma (ED) Additional Instructions: Ice to penis off and on today. Return for worsening swelling or pain or inability to urinate. Re-evaluation by Dr. Joy on Friday without fail Referrals: Yomaiar Hayes MD [Primary Care Provider] - 1-2 days without fail
[2018-06-27 17:11] VITALS: BP 142/78
== END 2018-06-27 17:10 | disposition home or self-care (01) ==
DX: N50.89 Other specified disorders of the male genital organs (principal)

== ENCOUNTER → 2018-10-23 | Outpatient (CLI) | payer OTHER, MEDICARE | LOC: BMCIMAGING 16:02 | PROVIDERS: ATTEND Family Medicine | DX: J42 Unspecified chronic bronchitis (principal); M48.14 Ankylosing hyperostosis [Forestier], thoracic region ==

== ENCOUNTER 2019-03-30 04:58 | Inpatient (IN) | payer OTHER, MEDICARE | END 2019-04-07 12:53 | disposition home health service (06) | LOC: F3E 04-06 17:25 → F2W 09:20 ==